=== PATIENT | male | born 1995 | race Two or more races ===

== ENCOUNTER 2017-04-26 15:58 | Emergency (ER) | payer MEDICAID ==
[2017-04-26 18:19] VITALS: BP 128/74
== END 2017-04-26 18:19 | disposition home or self-care (01) ==
LOC: ED 15:58
DX: S51.011A Laceration without foreign body of right elbow, initial encounter (principal); W01.198A Fall on same level from slipping, tripping and stumbling with subsequent striking against other object, initial encounter; Y93.89 Activity, other specified; Y99.8 Other external cause status; Y92.89 Other specified places as the place of occurrence of the external cause
CPT/HCPCS: J1170; J2001

== ENCOUNTER 2017-04-29 11:34 | Emergency (ER) | payer MEDICAID ==
[~2017-04-29] VITALS: Ht 188 cm; Wt 141.3 kg
[2017-04-29 12:17] VITALS: BP 137/89
== END 2017-04-29 12:17 | disposition home or self-care (01) ==
LOC: ED 11:34
DX: S51.011D Laceration without foreign body of right elbow, subsequent encounter (principal); X58.XXXD Exposure to other specified factors, subsequent encounter

== ENCOUNTER 2017-06-06 12:12 | Emergency (ER) | payer MEDICAID ==
[~2017-06-06] VITALS: Ht 188 cm; Wt 140.8 kg
[2017-06-06 14:32] VITALS: BP 140/75
== END 2017-06-06 14:32 | disposition home or self-care (01) ==
LOC: ED 12:12
DX: B34.9 Viral infection, unspecified (principal); J98.01 Acute bronchospasm; R03.0 Elevated blood-pressure reading, without diagnosis of hypertension
CPT/HCPCS: J7613; J7644